=== PATIENT | male | born 1965 | race African-American/Black ===

== ENCOUNTER 2016-10-22 11:24 | Emergency (ER) | payer MEDICARE, OTHER ==
[~2016-10-22] VITALS: Ht 180.3 cm; Wt 132.4 kg
[~2016-10-22 11:24] MED LIST: ENOX30DI SQ; FAMO10TA69 PO; HYDR12.58 PO; LISI-338 PO; LOVA20TA2 PO; WARF1TAB PO
[2016-10-22] MEDS ORDERED: HYDROMORPHONE 2 MG/ML VIAL. IM ONE (12:30)
--- NOTE | 2016-10-22 13:03 | EKG ---
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
--- NOTE | 2016-10-22 13:42 | RAD ---
Indication fall 2 weeks previously. Persistent pain. A single AP view of the chest was obtained as well as films targeted to right ribs. The chest is compared to an examination 12/05/2015. Heart size is at the upper limits of normal. There is no congestive heart failure focal infiltrate significant pleural fluid collection or pneumothorax. Films targeted to right ribs appear unremarkable. A bony abnormality is not seen. IMPRESSION: No acute finding apparent in the chest. No abnormality seen involving right ribs on plain films
--- NOTE | 2016-10-22 13:42 | RAD ---
Right scapula, 2 views, 10/22/2016: History: Fall, right-sided pain No fracture or dislocation is identified. There are mild degenerative changes at the shoulder. IMPRESSION: No acute abnormality is detected.
[2016-10-22 15:00] VITALS: BP 152/89
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
== END 2016-10-22 15:58 | disposition home or self-care (01) ==
LOC: ER 11:24
DX: M54.9 Dorsalgia, unspecified (principal); R07.9 Chest pain, unspecified; K21.9 Gastro-esophageal reflux disease without esophagitis; I10 Essential (primary) hypertension; Z86.73 Personal history of transient ischemic attack (TIA), and cerebral infarction without residual deficits; W05.0XXA Fall from non-moving wheelchair, initial encounter; Y93.89 Activity, other specified; Y92.89 Other specified places as the place of occurrence of the external cause; Y99.8 Other external cause status
CPT/HCPCS: 71101; 73010; 93005; 96372; 99284; J1170

== ENCOUNTER 2016-12-10 07:40 | Emergency (ER) | payer MEDICARE, OTHER ==
[~2016-12-10] VITALS: Ht 180.3 cm; Wt 132.4 kg
[2016-12-10 08:11] LABS: BASO % 1 % (0-3); EOS % 1 % (0-3); HEMATOCRIT 43.1 % (39.0-53.0); HEMOGLOBIN 13.9 g/dL (13.0-17.5); LYMPH # 1.6 x10^3/uL (1.0-4.8); LYMPH % 23 % (24-48); MEAN CORPUSCULAR HEMOGLOBIN 27 pg (25-35); MEAN CORPUSCULAR HGB CONC 32 g/dL (31-37); MEAN CORPUSCULAR VOLUME 84 fL (79-100); MONO % 8 % (0-9); NEUT % 67 % (31-73); PLATELET COUNT 236 x10^3/uL (140-400); RED BLOOD COUNT 5.13 x10^6/uL (4.30-5.70); RED CELL DISTRIBUTION WIDTH 14.3 % (11.5-14.5); WHITE BLOOD COUNT 6.7 x10^3/uL (4.0-11.0)
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
[2016-12-10] MEDS ORDERED: DEXAMETHASONE SOD PHOS 20 MG/5 ML VIAL. IV ONE (08:15)
[2016-12-10] MEDS ORDERED: IPRATRPIUM/ALBUTEROL 0.5/2.5MG 3 ML NEBU. NEB ONE (08:15)
--- NOTE | 2016-12-10 08:15 | EKG ---
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
[2016-12-10 08:20] LABS: INR 1.1 (0.8-1.1); PROTHROMBIN TIME PATIENT 13.9 SEC (11.7-14.0)
[2016-12-10 08:24] LABS: CALCIUM 9.4 mg/dL (8.5-10.1); CREATININE 1.1 mg/dL (0.7-1.3); GFR 86.1; MAGNESIUM 1.5 mg/dL (1.8-2.4); POTASSIUM 4.2 mmol/L (3.5-5.1)
[2016-12-10 08:32] LABS: OBC FLU VALID
--- NOTE | 2016-12-10 08:34 | RAD ---
EXAM: Right foot 3 views. HISTORY: Right foot and heel pain/swelling. COMPARISON: None. FINDINGS: There are changes of arthrodesis through the calcaneus, subtalar joint and tibiotalar joint, fixed by a retrograde intramedullary nail, partially visualized. The nail is fixed distally by at least one screw. Another screw traverses the posterior calcaneus. Multiple pin tracks traverse the posterior calcaneus. The subtalar arthrodesis appears solid. The tibiotalar arthrodesis is not clearly solid, though the joint space is effaced. There are small osseous or metallic fragments just proximal to the calcaneal tuberosity and along the medial malleolus. The distal fibula has been resected. There is moderate disuse osteopenia. No acute fractures are seen. There is soft tissue swelling diffusely. The distal Achilles tendon stripe appears thickened. IMPRESSION: 1. Changes of instrumented arthrodesis of the tibiotalar and subtalar joints. The subtalar arthrodesis appears solid. The tibiotalar arthrodesis is not definitively solid on these views. Ankle radiographs could further evaluate. 2. Chronic fracture deformity of the calcaneus status post hardware removal. 3. Soft tissue swelling. Findings suggesting distal Achilles tendinopathy. 4. Diffuse osteopenia.
--- NOTE | 2016-12-10 08:35 | RAD ---
EXAM: Chest one view. HISTORY: Shortness of breath. COMPARISON: 10/22/2016, 12/05/2015. FINDINGS: A frontal view of the chest is obtained. The inspiration is small with bibasilar atelectasis. Calcified mediastinal lymph nodes are likely secondary to old granulomatous disease. There is no pneumothorax or pleural effusion. The heart is not enlarged. IMPRESSION: 1. Small inspiration with bibasilar atelectasis.
[2016-12-10 08:37] LABS: CKMB INDEX 0.3 % (0-4); CKMB MASS 0.9 ng/mL (0.0-3.6)
--- NOTE | 2016-12-10 09:08 | RAD ---
EXAM: Right ankle 3 views. HISTORY: Acute pain, arthrodesis COMPARISON: 07/08/2015. FINDINGS: Three views of the right ankle are obtained. Since the prior examination, there are changes of revision arthrodesis through the tibiotalar and subtalar joints. A retrograde intramedullary nail traverses the calcaneus, talus and distal tibia. It is fixed proximally and distally by screws. The subtalar and tibiotalar joints. Solidly fused. Another screw traverses the calcaneus from posteriorly. Old screw remnants and tracts of removed hardware are noted. The distal fibula has been resected. Scattered metallic and osseous fragments are seen medially, laterally and proximal to the calcaneal tuberosity. No fractures are seen. There is at least mild diffuse soft tissue swelling. A chronic fracture deformity of the calcaneus is likely present. The calcaneus is more sclerotic the previously which may be an expected postprocedural finding. The distal Achilles tendon stripe is somewhat thickened. IMPRESSION: 1. Tibiotalar and subtalar arthrodeses appear solid. 2. Sclerosis of the talus and calcaneus are likely an expected postoperative finding. Correlate with other data to exclude chronic osteomyelitis. 3. Soft tissue swelling. Correlate for distal Achilles tendinopathy.
[2016-12-10 09:14] LABS: BILIRUBIN,URINE NEGATIVE (NEG); GLUCOSE,URINE NEGATIVE (NEG); NITRITE,URINE NEGATIVE (NEG); PROTEIN,URINE 100 mg/dL (NEG-TRACE)
[2016-12-10 09:17] LABS: BACTERIA,URINE 0 /HPF (0-FEW); RBC,URINE 0 /HPF (0-2); SQUAMOUS EPITHELIAL CELL,UR FEW /LPF; WBC,URINE RARE /HPF (0-4)
[2016-12-10] MEDS ORDERED: PROAIR RESPICL90 MCG IH (11:11)
[2016-12-10] MEDS ORDERED: AZIT250T PO (11:11)
[2016-12-10] MEDS ORDERED: BENZ100C PO (11:11)
[2016-12-10] MEDS ORDERED: PRED50TA PO (11:11)
[2016-12-10] MEDS ORDERED: DICL50TA4 PO (11:11)
[2016-12-10] MEDS ORDERED: ACET-704 PO (11:11)
[2016-12-10 11:20] VITALS: BP 176/104
== END 2016-12-10 11:28 | disposition home or self-care (01) ==
LOC: ER 07:40
DX: S92.001A Unspecified fracture of right calcaneus, initial encounter for closed fracture (principal); J06.9 Acute upper respiratory infection, unspecified; J20.9 Acute bronchitis, unspecified; R06.02 Shortness of breath; I10 Essential (primary) hypertension; F17.210 Nicotine dependence, cigarettes, uncomplicated; M76.61 Achilles tendinitis, right leg; Z86.73 Personal history of transient ischemic attack (TIA), and cerebral infarction without residual deficits; Z86.718 Personal history of other venous thrombosis and embolism; X58.XXXA Exposure to other specified factors, initial encounter; Y93.89 Activity, other specified; Y92.89 Other specified places as the place of occurrence of the external cause; Y99.8 Other external cause status
CPT/HCPCS: 36415; 71010; 73610; 73630; 80048; 81001; 82553; 83690; 83735; 83880; 84484; 85027; 85379; 85610; 85730; 87804; 93005; 94640; 96374; 99285; J1100; J7620

== ENCOUNTER 2017-05-24 19:48 | Emergency (ER) | payer MEDICARE, OTHER ==
[~2017-05-24] VITALS: Ht 180.3 cm; Wt 132.4 kg
[~2017-05-24 19:48] MED LIST changes: +ACET-704 PO; +AZIT250T PO; +BENZ100C PO; +DICL50TA4 PO; +PRED50TA PO; +PROAIR RESPICL90 MCG IH; -WARF1TAB PO; +WARF1TAB74 PO
[2017-05-24 19:57] VITALS: BP 162/84
[2017-05-24] MEDS ORDERED: HYDROcodone/APAP 5/325MG 1 TAB TABLET PO ONE (21:15)
[2017-05-24] MEDS ORDERED: IBUPROFEN 600 MG TABLET. PO ONE (21:15)
--- NOTE | 2017-05-24 22:22 | RAD ---
CT HEAD AND CERVICAL SPINE WO dated 05/24/2017 9:00 PM History: Fall, head laceration Technique: Noncontrast CT imaging was performed of the head and cervical spine. Multiplanar reconstruction images are submitted. Exposure: One or more of the following individualized dose reduction techniques were utilized for this examination: 1. Automated exposure control 2. Adjustment of the mA and/or kV according to patient size 3. Use of iterative reconstruction technique. Head CT Comparison: 12/05/2015 Findings: No acute extra-axial or parenchymal hemorrhage is identified. There is no significant intra-axial mass effect, midline shift, or extra-axial fluid collection. The ritter-white differentiation of the major vascular territories is preserved. The ventricles, sulci, and cisterns are within normal limits in size and configuration. There is likely mild ill-defined low-density of the supratentorial white matter bilaterally, not obviously changed. Mastoid air cells are aerated. There is now near complete opacification left sphenoid sinus.There is no significant focal calvarial abnormality. There is atherosclerotic calcification bilateral carotid siphons and intradural vertebral arteries. Impression: 1. No acute intracranial abnormality is identified. 2. There is likely mild ill-defined low-density of the supratentorial white matter which has not convincingly changed, may be due to white matter disease or chronic microvascular ischemic disease. 3. There is now near complete opacification left sphenoid sinus. Cervical spine CT Comparison: None Findings: No acute cervical spine fracture is identified. Vertebral body stature and AP alignment are within normal limits. Atlanto-axial distance is within normal limits. There is appropriate alignment of lateral masses of C1 relative to C2. Occipital condylar-C1 relationship is maintained. Impression: 1. No acute cervical spine fracture is identified. Electronically signed by: Cullen Karimi MD (05/24/2017 10:19 PM) [facility]
[2017-05-24] MEDS ORDERED: LIDOCAINE 1% / SOD BICARB 8.4% 20 ML VIAL. IJ ONE (22:39)
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
--- NOTE | 2017-05-25 08:11 | RAD ---
Indication: Trauma, fall on right leg. Technique: 3 views of the right ankle are submitted for review. Comparison is from December 10, 2016. 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 There is destruction of the calcaneus and talus. There are 2 screw fragments in the talus again noted. Overall, appearance is similar to the December study. Distal fibula has been resected. No acute fracture or dislocation is apparent. Impression: Hardware fusion across the tibiotalar and subtalar joints. No perihardware lucency or change in alignment.
--- NOTE | 2017-05-25 08:12 | RAD ---
Indication: Trauma, fall on right leg. Technique: 2 views of the right femur are submitted for review. No comparison is available. Findings: No fracture or osseous lesion is identified. Vascular calcifications are noted. Impression: Negative for fracture.
== END 2017-05-24 23:20 | disposition home or self-care (01) ==
LOC: ER 19:48
DX: S01.01XA Laceration without foreign body of scalp, initial encounter (principal); M25.571 Pain in right ankle and joints of right foot; J21.9 Acute bronchiolitis, unspecified; I10 Essential (primary) hypertension; E11.9 Type 2 diabetes mellitus without complications; Z86.711 Personal history of pulmonary embolism; Z87.01 Personal history of pneumonia (recurrent); Z86.73 Personal history of transient ischemic attack (TIA), and cerebral infarction without residual deficits; W10.9XXA Fall (on) (from) unspecified stairs and steps, initial encounter; Y93.89 Activity, other specified; Y92.89 Other specified places as the place of occurrence of the external cause; Y99.8 Other external cause status
CPT/HCPCS: 12004; 70450; 72125; 73552; 73610; 99284-25

== ENCOUNTER 2017-05-25 20:42 | Emergency (ER) | payer MEDICARE, OTHER ==
[~2017-05-25] VITALS: Ht 180.3 cm; Wt 132.4 kg
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
[2017-05-25 21:24] LABS: BASO % 1 % (0-3); EOS % 1 % (0-3); HEMATOCRIT 39.1 % (39.0-53.0); HEMOGLOBIN 12.9 g/dL (13.0-17.5); LYMPH % 40 % (24-48); MEAN CORPUSCULAR HEMOGLOBIN 28 pg (25-35); MEAN CORPUSCULAR HGB CONC 33 g/dL (31-37); MEAN CORPUSCULAR VOLUME 85 fL (79-100); MONO % 8 % (0-9); NEUT % 51 % (31-73); PLATELET COUNT 216 x10^3/uL (140-400); RED BLOOD COUNT 4.59 x10^6/uL (4.30-5.70); RED CELL DISTRIBUTION WIDTH 15.9 % (11.5-14.5); WHITE BLOOD COUNT 7.4 x10^3/uL (4.0-11.0)
[2017-05-25 21:37] LABS: CALCIUM 8.2 mg/dL (8.5-10.1); CREATININE 1.2 mg/dL (0.7-1.3); GFR 77.5; POTASSIUM 4.2 mmol/L (3.5-5.1)
[2017-05-25 21:44] LABS: ALBUMIN 3.7 g/dL (3.4-5.0); ALBUMIN/GLOBULIN RATIO 1.1 (1.0-1.7); MAGNESIUM 1.6 mg/dL (1.8-2.4); TOTAL BILIRUBIN 0.3 mg/dL (0.2-1.0)
[2017-05-25 21:46] LABS: BILIRUBIN,URINE NEGATIVE (NEG); GLUCOSE,URINE NEGATIVE (NEG); NITRITE,URINE NEGATIVE (NEG); PROTEIN,URINE 100 mg/dL (NEG-TRACE); UROBILINOGEN,URINE 0.2 mg/dL (0.2 mg/dL)
[2017-05-25 21:54] LABS: ETHANOL 339 mg/dL (0-10)
[2017-05-25 21:56] LABS: BACTERIA,URINE 0 /HPF (0-FEW); RBC,URINE 0 /HPF (0-2); SQUAMOUS EPITHELIAL CELL,UR OCC /LPF; WBC,URINE 0 /HPF (0-4)
[2017-05-25 22:05] LABS: BARBITURATES NEG (NEG); BENZODIAZEPINES NEG (NEG); CANNABINOIDS NEG (NEG); COCAINE NEG (NEG); METHADONE NEG (NEG); OPIATES POS (NEG); PHENCYCLIDINE NEG (NEG)
--- NOTE | 2017-05-25 22:12 | RAD ---
CT Head W/O Contrast: History: AMS. TRAUMA YESTERDAY, HX STROKE PRIOR YESTERDAY SENT Comparison: May 24, 2017 Axial images were obtained without contrast. There is no mass effect, extraaxial fluid collections or hydrocephalus. There is no gross bleed. Minimal, patchy periventricular and subcortical white matter hypoattenuation is seen.There is no focal loss of ritter-white matter distinction to suggest acute ischemia, i.e. stroke. Impression: No acute findings. PQRS Compliance Statement: One or more of the following individualized dose reduction techniques were utilized for this examination: 1. Automated exposure control 2. Adjustment of the mA and/or kV according to patient size 3. Use of iterative reconstruction technique Electronically signed by: Reynaldo Campos III, MD (05/25/2017 10:09 PM) [facility]
[2017-05-25 22:30] VITALS: BP 133/78
--- NOTE | 2017-05-26 07:11 | EKG ---
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
== END 2017-05-25 23:08 | disposition home or self-care (01) ==
LOC: ER 20:42
DX: R55 Syncope and collapse (principal); F10.10 Alcohol abuse, uncomplicated; R74.8 Abnormal levels of other serum enzymes; I10 Essential (primary) hypertension; Z86.718 Personal history of other venous thrombosis and embolism; K21.9 Gastro-esophageal reflux disease without esophagitis; Z86.711 Personal history of pulmonary embolism; Z86.73 Personal history of transient ischemic attack (TIA), and cerebral infarction without residual deficits
CPT/HCPCS: 36415; 70450; 80053; 80307; 80329; 81001; 82550; 83690; 83735; 84443; 84484; 85025; 93005; 99285; G0480; G0479

== ENCOUNTER 2017-06-03 09:16 | Emergency (ER) | payer MEDICARE, OTHER ==
[~2017-06-03] VITALS: Ht 180.3 cm; Wt 132.4 kg
[2017-06-03 09:22] VITALS: BP 131/67
[2017-06-03] MEDS ORDERED: HYDROcodone/APAP 5/325MG 1 TAB TABLET PO ONE (10:30)
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
== END 2017-06-03 10:46 | disposition home or self-care (01) ==
LOC: ER 09:16
DX: S01.01XD Laceration without foreign body of scalp, subsequent encounter (principal); I10 Essential (primary) hypertension; K21.9 Gastro-esophageal reflux disease without esophagitis; Z86.73 Personal history of transient ischemic attack (TIA), and cerebral infarction without residual deficits; Z86.718 Personal history of other venous thrombosis and embolism; Z86.711 Personal history of pulmonary embolism
CPT/HCPCS: 99282

== ENCOUNTER 2017-11-19 05:01 | Emergency (ER) | payer OTHER, MEDICARE ==
[2017-11-19 06:00] LABS: ADD MAN DIFF? NO
[2017-11-19 06:10] LABS: BASO % 0 % (0-3); EOS # 0.1 x10^3/uL (0.0-0.7); EOS % 1 % (0-3); HEMATOCRIT 39.8 % (39.0-53.0); HEMOGLOBIN 13.4 g/dL (13.0-17.5); LYMPH # 1.5 x10^3/uL (1.0-4.8); LYMPH % 16 % (24-48); MEAN CORPUSCULAR HEMOGLOBIN 28 pg (25-35); MEAN CORPUSCULAR HGB CONC 34 g/dL (31-37); MEAN CORPUSCULAR VOLUME 83 fL (79-100); MONO # 0.5 x10^3/uL (0.0-1.1); MONO % 5 % (0-9); NEUT # 7.5 x10^3uL (1.8-7.7); NEUT % 78 % (31-73); PLATELET COUNT 198 x10^3/uL (140-400); RED BLOOD COUNT 4.79 x10^6/uL (4.30-5.70); RED CELL DISTRIBUTION WIDTH 14.7 % (11.5-14.5); WHITE BLOOD COUNT 9.6 x10^3/uL (4.0-11.0)
[2017-11-19 06:12] LABS: ANION GAP 12 (6-14); BLOOD UREA NITROGEN 25 mg/dL (8-26); BUN/CREATININE RATIO 18 (6-20); CALCIUM 8.9 mg/dL (8.5-10.1); CARBON DIOXIDE 23 mmol/L (21-32); CHLORIDE 103 mmol/L (98-107); CREATININE 1.4 mg/dL (0.7-1.3); GFR 64.9; GLUCOSE 110 mg/dL (70-99); POTASSIUM 4.2 mmol/L (3.5-5.1); SODIUM 138 mmol/L (136-145)
[2017-11-19] MEDS ORDERED: CONTRAST GIVEN MC ×2 (06:15)
[2017-11-19 06:17] LABS: ALBUMIN 3.4 g/dL (3.4-5.0); ALBUMIN/GLOBULIN RATIO 0.9 (1.0-1.7); ALK PHOS 94 U/L (46-116); ALT (SGPT) 23 U/L (16-63); AST (SGOT) 27 U/L (15-37); TOTAL BILIRUBIN 0.4 mg/dL (0.2-1.0); TOTAL PROTEIN 7.2 g/dL (6.4-8.2)
[2017-11-19 06:19] LABS: BILIRUBIN,URINE NEGATIVE (NEG); CLARITY,URINE CLEAR; COLOR,URINE YELLOW; GLUCOSE,URINE NEGATIVE (NEG); NITRITE,URINE NEGATIVE (NEG); PH,URINE 5.5; PROTEIN,URINE 30 mg/dL (NEG-TRACE)
[2017-11-19 06:35] LABS: BACTERIA,URINE 0 /HPF (0-FEW); RBC,URINE 0 /HPF (0-2); SQUAMOUS EPITHELIAL CELL,UR MOD /LPF; WBC,URINE OCC /HPF (0-4)
[2017-11-19] MEDS: IOHEXOL 300 MG/ML 100ML VIAL. IV ×2 (06:35)
[2017-11-19] MEDS: ONDANSETRON PF 4 MG/2 ML VIAL. IV ×2 (06:48)
[2017-11-19] MEDS: fentaNYL PF VIAL 100 MCG/2 ML VIAL IV ×2 (06:49)
== END 2017-11-19 07:38 | disposition home or self-care (01) ==
LOC: ER 05:01
DX: R10.31 Right lower quadrant pain (principal); J18.9 Pneumonia, unspecified organism; K21.9 Gastro-esophageal reflux disease without esophagitis; I10 Essential (primary) hypertension; Z86.73 Personal history of transient ischemic attack (TIA), and cerebral infarction without residual deficits; Z86.711 Personal history of pulmonary embolism; Z86.718 Personal history of other venous thrombosis and embolism
CPT/HCPCS: 36415; 74177; 80053; 81001; 85025; 96374; 96375; 99285-25; J2405; J3010; Q9967

== ENCOUNTER 2018-01-24 08:16 | Emergency (ER) | payer MEDICARE, OTHER | END 2018-01-24 08:58 | disposition home or self-care (01) | LOC: ER 08:58 | DX: H04.309 Unspecified dacryocystitis of unspecified lacrimal passage (principal); K21.9 Gastro-esophageal reflux disease without esophagitis; I10 Essential (primary) hypertension; Z86.73 Personal history of transient ischemic attack (TIA), and cerebral infarction without residual deficits | CPT/HCPCS: 99283 ==

== ENCOUNTER 2020-04-01 06:33 | Emergency (ER) | payer MEDICARE, OTHER ==
[~2020-04-01] VITALS: Ht 180.3 cm; Wt 136.3 kg
[~2020-04-01 06:33] MED LIST changes: +AMOX1TAB61 PO; +DOXY100C14 PO; +GUAI-108 PO; +TRAM1TAB4 PO; +WARF1TAB2 PO; -WARF1TAB74 PO
[2020-04-01] MEDS ORDERED: MORPHINE SULFATE 4 MG/ML VIAL. IV ONE (08:00)
[2020-04-01 08:10] LABS: BASO # 0.1 x10^3/uL (0.0-0.2); BASO % 1 % (0-3); EOS # 0.1 x10^3/uL (0.0-0.7); EOS % 2 % (0-3); HEMATOCRIT 38.4 % (39.0-53.0); HEMOGLOBIN 13.2 g/dL (13.0-17.5); LYMPH % 32 % (24-48); MEAN CORPUSCULAR HEMOGLOBIN 30 pg (25-35); MEAN CORPUSCULAR HGB CONC 34 g/dL (31-37); MEAN CORPUSCULAR VOLUME 89 fL (79-100); MONO # 0.5 x10^3/uL (0.0-1.1); MONO % 8 % (0-9); NEUT # 3.7 x10^3/uL (1.8-7.7); NEUT % 58 % (31-73); PLATELET COUNT 209 x10^3/uL (140-400); RED BLOOD COUNT 4.34 x10^6/uL (4.30-5.70); RED CELL DISTRIBUTION WIDTH 13.7 % (11.5-14.5); WHITE BLOOD COUNT 6.3 x10^3/uL (4.0-11.0)
[2020-04-01] MEDS ORDERED: hydrALAZINE 20 MG/ML VIAL. IVP ONE (08:15)
[2020-04-01 08:19] LABS: PROTHROMBIN TIME PATIENT 13.1 SEC (11.7-14.0)
--- NOTE | 2020-04-01 08:43 | RAD ---
Right lower extremity venous duplex study 04/01/2020 Clinical History: Right leg swelling.. Technique: Using a combination of real time ultrasound imaging and color-flow and pulse Doppler imaging techniques along with graded compression and augmentation, duplex evaluation of the deep venous system of the right lower extremity was performed. Multiple images were obtained. Findings: Echogenic nonocclusive thrombus consistent with chronic DVT is seen involving the peroneal and posterior tibial veins within the right calf extending to involve the right popliteal and distal and mid right superficial femoral veins. The proximal right superficial femoral vein and right common femoral vein are patent. IMPRESSION: Chronic appearing DVT is seen extending from the deep calf veins to the mid right superficial femoral vein. Electronically signed by: Doyle Hilliard MD (04/01/2020 8:39 AM) [id number]
[2020-04-01 08:55] LABS: CALCIUM 8.1 mg/dL (8.5-10.1); CREATININE 1.1 mg/dL (0.7-1.3); GFR 84.7; POTASSIUM 4.1 mmol/L (3.5-5.1)
[2020-04-01 09:01] LABS: ALBUMIN 3.2 g/dL (3.4-5.0); MAGNESIUM 1.3 mg/dL (1.8-2.4); TOTAL BILIRUBIN 0.3 mg/dL (0.2-1.0); TOTAL PROTEIN 6.4 g/dL (6.4-8.2)
[2020-04-01] MEDS ORDERED: MAGNESIUM SULFATE 2GM 50 ML IV ONE (09:15)
[2020-04-01] MEDS ORDERED: ONDANSETRON ODT 4 MG TAB.RAPDIS. PO ONE (10:15)
[2020-04-01] MEDS ORDERED: RIVA20TA2 PO (11:33)
[2020-04-01] MEDS ORDERED: HYDR-3164 PO (11:33)
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
[2020-04-01 11:51] VITALS: BP 189/93
== END 2020-04-01 12:40 | disposition home or self-care (01) ==
LOC: ER 06:33
DX: I82.501 Chronic embolism and thrombosis of unspecified deep veins of right lower extremity (principal); R60.0 Localized edema; I10 Essential (primary) hypertension; K21.9 Gastro-esophageal reflux disease without esophagitis; F17.200 Nicotine dependence, unspecified, uncomplicated; F10.10 Alcohol abuse, uncomplicated; Z98.890 Other specified postprocedural states; Z86.73 Personal history of transient ischemic attack (TIA), and cerebral infarction without residual deficits; Z79.899 Other long term (current) drug therapy
CPT/HCPCS: 36415; 80053; 83735; 83880; 85025; 85610; 85730; 93971; 96365; 96375; 99285; J0360; J2270; J3475

== ENCOUNTER 2021-03-17 19:19 | Emergency (ER) | payer MEDICARE, OTHER ==
[~2021-03-17] VITALS: Ht 182.9 cm; Wt 160.0 kg
[~2021-03-17 19:19] MED LIST changes: +AMLO-186 PO; +CEPH500T PO; +COLC0.6T34 PO; +DOXY-181 PO; -DOXY100C14 PO; +FAMO-152 PO; -FAMO10TA69 PO; +HYDR-3164 PO; -LISI-338 PO; +LISI-517 PO; +LOSA100T14 PO; +OMEP-346 PO; +OXYC5CAP PO; +PRED-220 PO; +RIVA20TA2 PO
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
--- NOTE | 2021-03-17 23:23 | RAD ---
Exam: Right tib-fib 2 views. Right ankle 3 views. Right foot 3 views INDICATION: Right ankle and leg pain TECHNIQUE: Frontal and lateral views of the right tibia and fibula. Frontal, lateral and oblique view s of the right ankle and foot Comparisons: None FINDINGS: Tib-fib: Bone mineralization is normal. No acute fractures. There is an intramedullary nail which extends thro ugh the calcaneus and distal tibial diaphysis. Mild soft tissue swelling at the distal lower leg. Ankle: Arthrodesis at the tibiotalar joint with osteotomy at the distal fibula. No acute fractures identifie d. There is soft tissue swelling surrounding the ankle. Bone mineralization is normal. Foot: Diffuse osteopenia. Diffuse soft tissue swelling at the forefoot and hindfoot. No acute fracture iden tified. Joint spaces are well-maintained. IMPRESSION: Fixation at the right ankle with fusion at the tibiotalar joint space. There is diffuse soft tissue s welling at the ankle and forefoot. No acute fractures identified. Electronically signed by: Ai Meyer MD (03/17/2021 11:20 PM) [facility]
[2021-03-18 01:59] VITALS: BP 138/86
== END 2021-03-18 02:15 | disposition home or self-care (01) ==
LOC: ER 19:19
DX: S99.911A Unspecified injury of right ankle, initial encounter (principal); M79.661 Pain in right lower leg; I10 Essential (primary) hypertension; K21.9 Gastro-esophageal reflux disease without esophagitis; Z86.73 Personal history of transient ischemic attack (TIA), and cerebral infarction without residual deficits; Z86.718 Personal history of other venous thrombosis and embolism; F17.200 Nicotine dependence, unspecified, uncomplicated; W18.39XA Other fall on same level, initial encounter; Y93.89 Activity, other specified; Y92.89 Other specified places as the place of occurrence of the external cause; Y99.8 Other external cause status
CPT/HCPCS: 73590; 73610; 73630; 99284

== ENCOUNTER → 2021-05-16 | Outpatient (CLI) | payer MEDICARE, OTHER ==
[2021-04-17 11:00] VITALS: BP 141/84
[~2021-05-16] MED LIST changes: +AMLO-187 PO; +CLON0.2T PO; +PRED20TA PO
[2021-05-16 10:01] LABS: CREATININE,RANDOM URINE 81.7 mg/dL (Not Establ.)
[2021-05-16 10:03] LABS: ALBUMIN 3.5 g/dL (3.4-5.0); CALCIUM 9.3 mg/dL (8.5-10.1); CREATININE 1.3 mg/dL (0.7-1.3); GFR 69.6; PHOSPHORUS 4.3 mg/dL (2.6-4.7); POTASSIUM 4.9 mmol/L (3.5-5.1); URIC ACID 5.9 mg/dL (3.5-7.2)
[2021-05-16 21:07] LABS: CREAT RD UR 75.9 mg/dL (Not Estab.); MICROALB RD UR 603.1 ug/mL (Not Estab.)
[2021-05-16 23:08] LABS: CALCIUM PTH 9.3 mg/dL (8.7-10.2); CREATININE PTH 1.12 mg/dL (0.76-1.27); PHOSPHORUS PTH 4.2 mg/dL (2.8-4.1); PTH INTACT 29 pg/mL (15-65)
== END ==
LOC: LAB 08:48
PROVIDERS: ATTEND Internal Medicine Nephrology
DX: N17.9 Acute kidney failure, unspecified (principal)
CPT/HCPCS: 80069; 82043; 82306; 82570; 83970; 84156; 84550